=== PATIENT | male | born 1995 | race Caucasian/White ===

== ENCOUNTER 2018-06-12 05:46 | Emergency (ER) | payer OTHER ==
[~2018-06-12] VITALS: Ht 177.8 cm; Wt 81.8 kg
[2018-06-12 07:44] LABS: BASO % 0.6 % (0.0-1.0); EOS # 0.1 10^3/uL (0.0-0.50); EOS % 1.2 % (0.0-3.0); HEMATOCRIT 38.9 % (42.0-52.0); HEMOGLOBIN 13.8 g/dl (13.5-17.5); LYMPH # 1.1 10^3/uL (1.5-6.5); LYMPH % 16.1 % (24.0-44.0); MEAN CORPUSCULAR HEMOGLOBIN 32.5 pg (27.0-33.0); MEAN CORPUSCULAR HGB CONC 35.5 g/dl (32.0-36.5); MEAN CORPUSCULAR VOLUME 91.5 fl (80.0-96.0); MONO # 0.5 10^3/uL (0.0-0.8); MONO % 8.1 % (0.0-5.0); NEUTROPHILS # 4.9 10^3/uL (1.8-7.7); NEUTROPHILS % 73.5 % (36.0-66.0); PLATELET COUNT, AUTOMATED 203 10^3/uL (150-450); RED BLOOD COUNT 4.25 10^6/uL (4.30-6.10); WHITE BLOOD COUNT 6.7 10^3/uL (4.0-10.0)
--- NOTE | 2018-06-12 08:19 | REP ---
Head CT without contrast: History: Syncope. Comparison study: No comparison. CT findings: Bone window settings demonstrate an intact bony calvarium. There is no evidence of skull fracture or incidental bony calvarial lesion. The visualized paranasal sinuses appear clear. No intraorbital abnormality is seen. On soft tissue window setting images; the lateral, third, and fourth ventricles are normal in size and position. Pinzon-white differentiation pattern is normal above and below the tentorium. There are is no evidence of intracranial hemorrhage. No mass, edema, infarction, or midline shift is seen. No extra-axial fluid collection is appreciated. Impression: Negative noncontrast head CT. Electronically Signed by Gonzalo Arguelles MD 06/12/2018 08:11 A
--- NOTE | 2018-06-12 08:24 | REP ---
CT study of the cervical spine without contrast: History: Syncope. Technique: Helical scanning is acquired and overlapping 2 mm high resolution axial images were generated and reviewed at bone and soft tissue window settings. Coronal and sagittal multiplanar re-formations images are generated. CT findings: There is no evidence of cervical spine element fracture. No skull base fracture is seen. Cervical vertebral body heights are preserved. Alignment is normal. There is a mild levoconvex curvature on coronal reformatted images. Facet joints are normally aligned bilaterally at each cervical level on multiplanar re-formations images. There is no evidence of intraspinal or paraspinal hematoma. No extra vertebral abnormality is seen. Impression: Negative CT study of the cervical spine without contrast. No fracture seen. Electronically Signed by Gonzalo Arguelles MD 06/12/2018 08:16 A
[2018-06-12 08:26] LABS: BLOOD UREA NITROGEN 16 MG/DL (7-18); CALCIUM LEVEL 8.5 MG/DL (8.5-10.1); CARBON DIOXIDE LEVEL 27 MEQ/L (21-32); CHLORIDE LEVEL 108 MEQ/L (98-107); CK-MB VALUE MASS < 1.0 NG/ML (<3.6); CPK CREATINE PHOSPHOKINASE 177 U/L (39-308); CREATININE FOR GFR 1.08 MG/DL (0.70-1.30); ETHYL ALCOHOL (ETHANOL) < 0.003 % (0.000-0.010); GLOMERULAR FILTRATION RATE > 60.0 (>60); GLUCOSE, FASTING 89 MG/DL (70-100); MB/CK RELATIVE INDEX 0.56 (< OR =4); POTASSIUM SERUM 3.8 MEQ/L (3.5-5.1); SODIUM LEVEL 142 MEQ/L (136-145); TROPONIN I 0.02 NG/ML (< 0.10)
--- NOTE | 2018-06-12 08:52 | REP ---
Chest x-ray: Two views. History: Syncope . Comparison study: No comparison . Findings: The lungs are well inflated and free of infiltrate. The pleural angles are sharp. The heart size is normal. Pulmonary vasculature is not increased. No significant bony abnormality is seen. Impression: Negative chest x-ray. Electronically Signed by Gonzalo Arguelles MD 06/12/2018 08:44 A
--- NOTE | 2018-06-12 09:11 | REP ---
Shoulder: Three views. History: Syncope. Findings: The left glenohumeral and acromioclavicular joints are normally aligned. Periarticular soft tissues are unremarkable. No fracture is seen. Impression: Negative radiographs of the left shoulder. Electronically Signed by Gonzalo Arguelles MD 06/12/2018 01:56 P
[2018-06-12 09:34] LABS: THYROID STIMULATING HORMONE 0.706 uIU/ML (0.358-3.740)
[2018-06-12 09:52] VITALS: BP 129/66
--- NOTE | 2018-06-13 07:00 | ECGEPIP ---
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
== END 2018-06-12 09:53 | disposition home or self-care (01) ==
LOC: M ED 05:46
DX: R55 Syncope and collapse (principal); I45.19 Other right bundle-branch block
CPT/HCPCS: 70450; 71046; 72125; 73030; 80048; 82550; 82553; 84443; 84484; 85025; 93005; 93041; 94760; 99284; G0480

== ENCOUNTER 2018-08-19 16:00 | Emergency (ER) | payer OTHER ==
[~2018-08-19] VITALS: Ht 177.8 cm; Wt 81.8 kg
[2018-08-19] MEDS ORDERED: KEFL500C17 PO (19:13)
[2018-08-19 19:29] VITALS: BP 123/64
== END 2018-08-19 19:36 | disposition home or self-care (01) ==
LOC: M ED 16:00
DX: S61.312A Laceration without foreign body of right middle finger with damage to nail, initial encounter (principal); S60.031A Contusion of right middle finger without damage to nail, initial encounter; X58.XXXA Exposure to other specified factors, initial encounter; Y92.9 Unspecified place or not applicable; Y93.9 Activity, unspecified; Y99.9 Unspecified external cause status